=== PATIENT | female | born 1980 | race Caucasian/White ===

== ENCOUNTER 2017-08-22 07:17 | Emergency (ER) | payer MEDICAID ==
[~2017-08-22] VITALS: Ht 162.6 cm; Wt 115.1 kg
[~2017-08-22 07:17] MED LIST: AMLO10TA2 PO; LEVO75TA5 PO
[2017-08-22] MEDS ORDERED: ASPI-496 PO (07:40)
[2017-08-22] MEDS ORDERED: LAMO150T3 PO (07:41)
[2017-08-22] MEDS ORDERED: LEVO112T4 PO (07:42)
[2017-08-22] MEDS ORDERED: TEMA30CA6 PO (07:43)
[2017-08-22] MEDS ORDERED: SERT100T PO (07:43)
[2017-08-22] MEDS ORDERED: ALBU18HF IH (07:44)
[2017-08-22] MEDS ORDERED: MELA2.5T PO (07:46)
[2017-08-22] MEDS ORDERED: LOSA1TAB19 PO (07:46)
[2017-08-22] MEDS ORDERED: LORA10TA3 PO (07:46)
[2017-08-22] MEDS ORDERED: NITR100C PO (07:47)
[2017-08-22] MEDS ORDERED: GABA300C10 PO (07:48)
[2017-08-22] MEDS ORDERED: SODIUM CHLORIDE FLUSH 10ML SYR IVF ONE (08:00)
[2017-08-22] MEDS ORDERED: MORPHINE SULFATE 4 MG/ML, 1ML IVPush PRN (08:00)
[2017-08-22] MEDS ORDERED: FAMOTIDINE 20 MG/2 ML IVP ONE (08:00)
[2017-08-22] MEDS ORDERED: ONDANSETRON 2MG/ML, 2ML IVPush ONE (08:00)
[2017-08-22] MEDS ORDERED: ONDANSETRON 2MG/ML, 2ML ONE (08:03)
[2017-08-22] MEDS ORDERED: MORPHINE SULFATE 4 MG/ML, 1ML ONE (08:03)
[2017-08-22] MEDS ORDERED: FAMOTIDINE 20 MG/2 ML ONE (08:03)
[2017-08-22 08:07] LABS: BASOPHILS # (AUTO) 0.09 x10^3/uL (0-0.1); BASOPHILS % (AUTO) 1 % (0-1); EOSINOPHILS # (AUTO) 0.16 x10^3/uL (0-0.4); EOSINOPHILS % (AUTO) 2 % (1-7); LYMPHOCYTES # (AUTO) 1.41 x10^3/uL (1-3.4); LYMPHOCYTES % (AUTO) 15 % (22-44); MD NO; MEAN CORPUSCULAR HEMOGLOBIN 24.8 pg (27.0-34.8); MEAN CORPUSCULAR HGB CONC 32.8 g/dL (32.4-35.8); MEAN CORPUSCULAR VOLUME 75.7 fL (80-100); MEAN PLATELET VOLUME 7.6 fL (7.4-10.4); MONOCYTES % (AUTO) 6 % (2-9); NEUTROPHILS # (AUTO) 7.21 x10^3/uL (1.8-6.8); NEUTROPHILS % (AUTO) 76 % (42-75); PLATELET COUNT 302 x10^3/uL (130-400); RED BLOOD COUNT 4.85 x10^6/uL (3.82-5.3); RED CELL DISTRIBUTION WIDTH 14.7 % (9.6-15.2)
[2017-08-22 08:17] LABS: ALANINE AMINOTRANSFERASE 22 U/L (12-78); ALBUMIN 3.4 g/dL (3.4-5.0); ANION GAP 11 mmol/L (5-15); CALCIUM 8.2 mg/dL (8.5-10.1); CHLORIDE 104 mmol/L (98-107)
[2017-08-22 08:21] LABS: ALKALINE PHOSPHATASE 113 U/L (45-117); BILIRUBIN,TOTAL 0.3 mg/dL (0.2-1.0); TOTAL PROTEIN 7.5 g/dL (6.4-8.2)
[2017-08-22 10:14] VITALS: BP 109/63
== END 2017-08-22 10:16 | disposition home or self-care (01) ==
LOC: ED 08:46
DX: R10.11 Right upper quadrant pain (principal); R19.7 Diarrhea, unspecified; I10 Essential (primary) hypertension; E03.9 Hypothyroidism, unspecified; J45.909 Unspecified asthma, uncomplicated; Z86.711 Personal history of pulmonary embolism; Z87.891 Personal history of nicotine dependence
CPT/HCPCS: 36415; 76700; 80053; 83690; 84703; 85025; 96374; 96375; 99285; J2405; S0028